=== PATIENT | male | born 1990 | race Caucasian/White ===

== ENCOUNTER 2017-08-10 07:36 | Emergency (ER) | payer BC ==
[2017-08-10 07:44] VITALS: RESP 18
[2017-08-10] MEDS ORDERED: Tetanus/Diphtheria Toxoids 0.5 ml Syringe IM ONE ×2 (08:37→08:55)
[2017-08-10] MEDS ORDERED: Lidocaine 1% w Epi 1:100,000 Inj INJ STA (08:37)
[2017-08-10] MEDS ORDERED: Bacitracin 500 Units/gm Oint Foilpak UD TOP STA (08:38)
[2017-08-10] MEDS ORDERED: Bacitracin 500 Units/gm Oint Foilpak UD ONE (08:55)
[2017-08-10] MEDS ORDERED: Lidocaine 2% w Epi 1:100,000 Inj IJ ONE (08:55)
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
[2017-08-10 09:35] VITALS: BP 108/60; PULSE 62; TEMP 98.3
[2017-08-10 16:43] VITALS: O2SAT 99
== END 2017-08-10 09:35 | disposition home or self-care (01) ==
LOC: C.ER 07:36
DX: S01.81XA Laceration without foreign body of other part of head, initial encounter (principal); W18.30XA Fall on same level, unspecified, initial encounter

== ENCOUNTER 2017-08-22 13:35 | Emergency (ER) | payer BC ==
[2017-08-22 13:43] VITALS: BP 116/65; PULSE 76; RESP 20; TEMP 97.8; O2SAT 98
--- NOTE | 2017-08-22 13:55 | C.PDOC ---
History Of Present Illness 27 yo male come in for scheduled sutures removal from chin area after sustained laceration that was repaired here in Ed on 08/10/17. Pt reports, no fever, chills , no wound redness or discharges. Ambulate to Ed for evaluation, not in any apparent distress. Time Seen by Provider: 08/22/17 13:52 Chief Complaint (Nursing): Abnormal Skin Integrity History Per: Patient Past Medical History Reviewed: Historical Data, Nursing Documentation, Vital Signs Vital Signs: Last Vital Signs Temp 97.8 F 08/22/17 13:40 Pulse 76 08/22/17 13:40 Resp 20 08/22/17 13:40 BP 116/65 08/22/17 13:40 Pulse Ox 98 08/22/17 13:56 - Medical History PMH: No Chronic Diseases Family History: States: No Known Family Hx - Social History Hx Alcohol Use: Yes Hx Substance Use: No - Immunization History Hx Tetanus Toxoid Vaccination: Yes Hx Influenza Vaccination: Yes Hx Pneumococcal Vaccination: No Review Of Systems Except As Marked, All Systems Reviewed And Found Negative. Constitutional: Negative for: Fever, Chills Eyes: Negative for: Vision Change ENT: Negative for: Ear Discharge, Nose Discharge Skin: Positive for: Lesions Neurological: Negative for: Weakness, Numbness, Altered Mental Status, Headache , Dizziness Physical Exam - Physical Exam Appears: Well, Non-toxic, No Acute Distress Skin: Normal Color, Warm, Other (well healing laceration to chin area closed with sutures#6, clean, dry, intact. no edema,no clelulitis, no wound discharges. ) Head: Atraumatic, Normacephalic Eye(s): bilateral: PERRL Ear(s): Bilateral: Normal Nose: No Discharge, No Deformity, No Tenderness Oral Mucosa: Moist, No Drooling, No Trismus Tongue: Normal Appearing Lips: Normal Appearing Throat: No Drooling Neck: No Midline Cervical Tenderness, No Paracervical Tenderness, No Step Off Deformity, Supple ED Course And Treatment O2 Sat by Pulse Oximetry: 98 Pulse Ox Interpretation: Normal Progress Note: On re-eval, pt is afebrile, hemodynamicaly stable. non-toxic. ENT: no acute findings. SKin: sutures from chin area removed in its entire, No edema, no cellulitis. neuorlogicaly intact. Pt advised and ref. to f/u with PMD as need Disposition Counseled Patient/Family Regarding: Diagnosis, Need For Followup - Disposition Referrals: [facility] [Outside] Disposition: HOME/ ROUTINE Disposition Time: 13:55 Condition: STABLE Additional Instructions: Follow up with PMD as need for further evaluation and treatment. Instructions: Stitches Removal (ED) Forms: [employer] (South African) - Clinical Impression Clinical Impression: Visit for suture removal
== END 2017-08-22 14:04 | disposition home or self-care (01) ==
LOC: C.ER 13:35
DX: Z48.02 Encounter for removal of sutures (principal)